=== PATIENT | male | born 1950 | race Caucasian/White ===

== ENCOUNTER 2020-05-11 07:04 | Outpatient (CLI) | payer MEDICARE, BC, SELFPAY ==
--- NOTE | 2020-05-11 07:09 | USCV_ITS ---
Regan Hawk Age: 70 Gender: M : 1950 Exam Date: 05/11/2020 07:16 Ordering Phys: Natasha Lopez MD Technologist: ROXI Exam Location: [facility] – [place] Indication: AAA SCREENING HISTORY: Diameter (cm) AP x Transverse x Length Velocity (cm/s) Waveform Prox Aorta: 2.19 x 2.13 x 134.50 Mid Aorta: 1.21 x 1.48 x 87.30 Distal Aorta: 1.44 x 1.61 x 104.00 Right Iliac Prox: 0.84 x 0.64 x 134.50 Left Iliac Prox: 0.64 x 0.84 x 144.20 Stent Prox Landing x x Aneurysmal Sac Max x x Lt Lat Sac Dim Rt Lat Sac Dim Stent Dist Landing x x Right Iliac Stent x x Left Iliac Stent x x Right Renal Art Left Renal Art FINDINGS: Normal abdominal aortic dimensions. Normal proximal common iliac artery dimensions. Normal Doppler flow velocities. CONCLUSIONS Normal abdominal aortic dimensions and velocities with no evidence of any aneurysm or stenosis Normal proximal common iliac artery dimensions and velocities with no evidence of aneurysm or stenosis Dr Milagro Diaz MD [facility] (Electronically Signed) Final Date: 11 May 2020 18:13 S
== END 2020-05-11 07:05 | disposition home or self-care (01) ==
PROVIDERS: PCP Family Medicine; Visit Provider Family Medicine
DX: Z13.6 Encounter for screening for cardiovascular disorders (principal)
CPT/HCPCS: 76706

== ENCOUNTER → 2024-10-28 11:21 | Outpatient (BNVA) | payer MEDICARE, BC, SELFPAY | PROVIDERS: PCP Family Medicine; Visit Provider Family Medicine | DX: I10 Essential (primary) hypertension (principal); E11.9 Type 2 diabetes mellitus without complications; E78.5 Hyperlipidemia, unspecified; N40.0 Benign prostatic hyperplasia without lower urinary tract symptoms | CPT/HCPCS: 80053; 80061; 82043; 82607; 83036; 84443; 85025 ==